=== PATIENT | male | born 1940 | race Caucasian/White ===

== ENCOUNTER → 2016-09-07 | Outpatient (CLI) | payer MEDICARE, MEDICAID ==
[~2016-09-07] MED LIST: ARANESP100 MCG/0. INJECT; ARANESP60 MCG/1 M INJECT; ARICEPT5 MG PO; HALFPRIN81 MG PO; MULTI-VITAMIN1 EACH PO; PRINIVIL20 MG PO; SYNTHROID50 MCG PO; TOPROL XL100 MG PO; XANAX0.5 MG PO; ZANTAC300 MG PO; ZOCOR40 MG PO; ZOLOFT25 MG PO; ZYLOPRIM300 MG PO; ZYPREXA10 MG PO
== END | disposition short-term general hospital (02) ==
LOC: CLONCO 05:21
DX: N18.3 Chronic kidney disease, stage 3 (moderate) (principal); D63.1 Anemia in chronic kidney disease

== ENCOUNTER → 2016-12-10 | Outpatient (CLI) | payer MEDICARE, MEDICAID | END | disposition short-term general hospital (02) | LOC: CLNEPH 12:43 | DX: I12.9 Hypertensive chronic kidney disease with stage 1 through stage 4 chronic kidney disease, or unspecified chronic kidney disease (principal); D63.1 Anemia in chronic kidney disease; N18.3 Chronic kidney disease, stage 3 (moderate); D63.8 Anemia in other chronic diseases classified elsewhere ==